=== PATIENT | female | born 1995 | race Caucasian/White ===

== ENCOUNTER 2022-12-16 10:30 | Inpatient (IN) | payer BC, OTHER, SELFPAY ==
[2022-12-16 10:56] VITALS: BMI 32.0
[2022-12-16 11:40] LABS: Fetal Membranes Rupture RUPTURE DETECTED (No Rupture)
[2022-12-16] MEDS ORDERED: HYDROcodone/Acetaminophen 5/325 mg Tablet PO PRN (12:22)
[2022-12-16] MEDS ORDERED: Methylergonovine 0.2 MG/ML VIAL IM PRN (12:22)
[2022-12-16] MEDS ORDERED: Misoprostol 200 MCG TAB PR PRN (12:22)
[2022-12-16] MEDS ORDERED: Lidocaine 1% (PF) 30 ML VIAL SC PRN (12:22)
[2022-12-16] MEDS ORDERED: Ibuprofen 800 MG TAB PO PRN (12:22)
[2022-12-16] MEDS ORDERED: Carboprost 250 MCG/ML AMP IM PRN (12:22)
[2022-12-16] MEDS ORDERED: Promethazine HCl 25 MG/ML VIAL IM PRN (12:22)
[2022-12-16] MEDS ORDERED: fentaNYL 50 mcg/mL 1 mL Vial SLOW IVP PRN (12:22)
[2022-12-16] MEDS ORDERED: hydrALAZINE 20 MG/ML VIAL SLOW IVP PRN (12:22)
[2022-12-16] MEDS ORDERED: Diphenoxylate HCl/Atropine Tablet PO PRN (12:22)
[2022-12-16] MEDS ORDERED: Acetaminophen 500 MG TAB PO PRN (12:22)
[2022-12-16] MEDS ORDERED: Ondansetron PF 4 MG/2 ML Vial IVP PRN (12:22)
[2022-12-16] MEDS ORDERED: Lactated Ringer's 1,000 ML IV SCH (12:30)
[2022-12-16] MEDS ORDERED: Oxytocin 30 units/NS 500 ML 500 ML IV SCH ×2 (12:30)
[2022-12-16 12:44] LABS: Hematocrit 35.9 % (34.9-44.5); Mean Corpuscular HGB CONC 33.4 g/dL (32.0-36.0); Mean Corpuscular Hemoglobin 27.9 pg (27.0-33.0); Mean Corpuscular Volume 83.5 fl (81.6-98.3); Mean Platelet Volume 11.5 fl (7.4-10.4); Platelet Count 267 10x3/uL (150-450); RBC Distribution Width 14.3 % (11.5-14.5); White Blood Cell (WBC) Count 15.5 10x3/uL (3.5-10.5)
[2022-12-16] MEDS: Misoprostol 100 MCG TAB PO SCH ×4 (12:59→22:59)
[2022-12-16 13:20] LABS: HBSAg Index 0.11 S/CO (0-0.99); Hep B Surf Ag - L&D Non-Reactive S/CO (NonReactive)
[2022-12-16 13:21] LABS: Syphilis Antibody Nonreactive (Nonreactive); Syphilis Antibody Index 0.03 S/CO (<1.00 Non-Reactive)
[2022-12-17] MEDS ORDERED: fentaNYL/Ropivacaine Epidural 100 ML ONE (05:53)
[2022-12-17] MEDS ORDERED: ePHEDrine Sulfate 50 MG/10 ML VIAL SLOW IVP PRN (06:42)
[2022-12-17] MEDS ORDERED: Promethazine HCl 25 MG/ML VIAL IM PRN (06:42)
[2022-12-17] MEDS ORDERED: Acetaminophen 325 MG TAB PO PRN (06:42)
[2022-12-17] MEDS ORDERED: Ondansetron PF 4 MG/2 ML Vial IVP PRN ×2 (06:42→19:48)
[2022-12-17] MEDS ORDERED: Naloxone HCl 0.4 mg/ml Vial IVP PRN ×2 (06:42)
[2022-12-17] MEDS ORDERED: Lactated Ringer's 500 ML IV PRN (06:42)
[2022-12-17] MEDS ORDERED: Moisturizing Cream (Eucerin) 113 GM JAR TOP PRN (06:42)
[2022-12-17] MEDS ORDERED: diphenhydrAMINE 50 MG/ML VIAL IVP PRN (06:42)
[2022-12-17] MEDS ORDERED: Communication Order-Pharmacy FS SCH (06:45)
[2022-12-17] MEDS ORDERED: fentaNYL 2 mcg/Ropivacaine 0.2% Epidural 100 ML CADD EPIDURAL SCH (06:45)
[2022-12-17] MEDS ORDERED: Lidocaine 1% (PF) 30 ML VIAL ONE (14:40)
[2022-12-17] MEDS ORDERED: ePHEDrine Sulfate 50 MG/10 ML VIAL ONE (15:00)
[2022-12-17] MEDS ORDERED: Bupivacaine 0.25% HCL 30 ML VIAL ONE (15:00)
[2022-12-17] MEDS ORDERED: Lanolin Ointment 7 GM TUBE TOP PRN (19:48)
[2022-12-17] MEDS ORDERED: hydrALAZINE 20 MG/ML VIAL SLOW IVP PRN (19:48)
[2022-12-17] MEDS ORDERED: Bisacodyl 10 MG SUPP PR PRN (19:48)
[2022-12-17] MEDS ORDERED: Boostrix 0.5 ML (Tdap) VIAL (>/=7 yrs of age) IM ONE (19:48)
[2022-12-17] MEDS ORDERED: Milk Of Magnesia 30 ML UDCUP PO PRN (19:48)
[2022-12-17] MEDS ORDERED: HYDROcodone/Acetaminophen 5/325 mg Tablet PO PRN ×2 (19:48)
[2022-12-17] MEDS ORDERED: diphenhydrAMINE 25 MG CAP PO PRN (19:48)
[2022-12-17] MEDS ORDERED: Preparation H Ointment 28 GM TUBE PR PRN (19:48)
[2022-12-17] MEDS ORDERED: Benzocaine-Menthol 82.5 ML CAN TOP PRN (19:48)
[2022-12-17] MEDS: Misoprostol 100 MCG TAB PO SCH (20:47)
[2022-12-17] MEDS: Ibuprofen 800 MG TAB PO SCH (21:13)
[2022-12-18] MEDS: Ibuprofen 800 MG TAB PO SCH ×2 (05:04→13:47)
[2022-12-18 16:16] VITALS: BP 133/79; TEMP 98.8
== END 2022-12-18 18:00 | disposition home or self-care (01) | DRG 807 ==
LOC: CSHLD/OP 10:30 → CSHLD 11:57 → CSHPP 12-17 19:30
PROVIDERS: ADMIT Student in an Organized Health Care Education/Training Program; ATTEND Student in an Organized Health Care Education/Training Program
PROC: 10E0XZZ Delivery of Products of Conception, External Approach (ICD-10-PCS; principal; 2022-12-17)
PROC: 3E0P7VZ Introduction of Hormone into Female Reproductive, Via Natural or Artificial Opening (ICD-10-PCS; 2022-12-17)
PROC: 0HQ9XZZ Repair Perineum Skin, External Approach (ICD-10-PCS; 2022-12-17)
PROC: 3E033XZ Introduction of Vasopressor into Peripheral Vein, Percutaneous Approach (ICD-10-PCS; 2022-12-17)
PROC: 3E033VJ Introduction of Other Hormone into Peripheral Vein, Percutaneous Approach (ICD-10-PCS; 2022-12-17)
DX: O76 Abnormality in fetal heart rate and rhythm complicating labor and delivery (principal); Z37.0 Single live birth; O48.0 Post-term pregnancy; O70.0 First degree perineal laceration during delivery; Z3A.41 41 weeks gestation of pregnancy
CPT/HCPCS: 84112; 85027; 86780; 86850; 86900; 86901; 87340; S0020